=== PATIENT | female | born 1990 | race Caucasian/White ===

== ENCOUNTER → 2024-09-03 13:28 | Outpatient (CLI) | payer OTHER, SELFPAY ==
--- NOTE | 2024-09-03 13:31 | DI.US.S_ITS ---
PROCEDURE: US OB >= 14 WEEKS FETUS INDICATIONS: 20WK ANATOMY SCAN OUTSIDE/PRIOR DATING DATA: Last menstrual period (LMP): Unknown. LMP-based estimated date of delivery (GEMA): Unknown. First dating scan (date and location): 07/02/2024. Estimated date of delivery (GEMA) from first dating scan: 01/01/2025. The calculations are made using the GEMA of 01/01/2025. TECHNIQUE: Real-time scanning was performed of the fetus, with image documentation and biometric measurements. Endovaginal scanning: Not performed COMPARISON: None. FINDINGS: General: A single living intrauterine gestation is present. Presentation: Breech. Placenta: Placental position is posterior/fundal , without previa. Amniotic fluid index: 16.6 cm, normal range is 5-24 cm. Single deepest vertical pocket is 6.1 cm. heart rate: 158 beats per minute. Maternal cervical canal: 3.5 cm long. Normal lower limit is 2.5 cm. biometrics: Biparietal diameter: 5.6 cm, 23 weeks 1 day Head circumference: 20.8 cm, 23 weeks 0 days Abdominal circumference: 18.7 cm, 23 weeks 4 days Femur length: 3.7 cm, 21 weeks 6 days Clinically estimated gestational age: 22 weeks 6 days Composite gestational age from present scan: 22 weeks 6 days Estimated weight and percentile: 539 g, 42% Anatomic survey: Neuro: Ventricles are non-dilated at less than 10 mm. Cisterna magna is normal at 3-11 mm. Cerebellum is normal in size and morphology. Nuchal skin fold: Normal at less than 6 mm between 14-21 weeks gestational age. Face: Nose and lips, facial profile are normal. Spine: The sacrum is not well seen. Heart: 4-chambered heart is present. Left ventricular outflow tract appears normal. Right ventricular outflow tract is not well seen. Diaphragm: Diaphragm is intact. Stomach: Left-sided stomach is present. Kidneys: No hydronephrosis. Normal is less than 5 mm in 2nd trimester, less than 7 mm in 3rd trimester. Cord: 3-vessel cord has orthotopic insertion. Bladder: Normal in size. Extremities: All 4 extremities identified. IMPRESSION: 1. Single live intrauterine consistent with 22 weeks and 6 days. 2. The right ventricular outflow tract and sacrum are not well seen. Recommend short-term follow-up ultrasound. 3. anatomic survey is otherwise within normal limits. We strive to produce accurate, complete, and clear reports of imaging services. To assist us in improving patient care, this report was composed using standard report templates and voice recognition software. Therefore, it may contain abnormal punctuation, insertions and/or omissions. Occasional wrong-word or sound-alike substitutions may occur. Though we review the report and make efforts to correct it, we do recommend that the report be read carefully in proper context to recognize any text inaccuracies. Dictated by: Nathanael Madrigal M.D. on 09/03/2024 at 16:24 Approved by: Nathanael Madrigal M.D. on 09/03/2024 at 16:26
== END ==
PROVIDERS: Referring Provider Advanced Practice Midwife; Visit Provider Advanced Practice Midwife
DX: Z34.92 Encounter for supervision of normal pregnancy, unspecified, second trimester (principal); Z3A.22 22 weeks gestation of pregnancy
CPT/HCPCS: 76811

== ENCOUNTER 2024-12-07 21:17 | Outpatient (CLI) | payer OTHER, SELFPAY ==
[2024-12-07 22:13] LABS: Add Manual Diff / Slide Review NO; Basophils Absolute Auto 0 /uL (0-100); Basophils Percent Auto 0.4 % (0-2); Eosinophils Absolute Auto 100 /uL (0-450); Eosinophils Percent Auto 0.8 % (2-4); Hemoglobin 12.4 g/dL (12.0-16.0); Lymphocytes Absolute Auto 1700 /uL (1100-4500); Lymphocytes Percent Auto 18.5 % (25-40); Mean Corpuscular HGB Conc 35.5 % (30-36); Mean Corpuscular Volume 87.3 fL (80-100); Monocytes Absolute Auto 600 /uL (0-900); Monocytes Percent Auto 6.1 % (3-14); Neutrophils Absolute Auto 6800 /uL (1500-7000); Neutrophils Percent Auto 74.2 % (50-75); Platelet Count 243 X10^3/uL (150-400); Red Blood Cell Count 4.01 X10^6/uL (4.0-5.2); White Blood Cell Count 9.1 X10^3/uL (4.5-11.0)
--- NOTE | 2024-12-07 22:25 | PM.OBTRLD ---
Visit Information Visit Information Date of evaluation: 12/07/24 Primary OB Provider: Génesis Mcfadden On-call OB Provider: Génesis Mcfadden Reason for Evaluation: Yes non-stress test and Yes other Comments/Additional reasons for admission: 34YO @ 36wks 3 day by 13wks US here for evaluation of elevated home BP (130's/90's). +FM and mild cramping. No vaginal bleeding, LOF, headache, vision changes, RUQ pain or increased edema. Uncomplicated care with CNMs, though her social situation has been stressful with FOB infidelity and lack of involvement, work and of her daughter's father. Vital Signs Vital Signs: Serial BPs: 154/85, 138/89, 131/81, 141/82 HR 105, T 37.0F Temporal PFSH Social History (Updated 12/08/24 @ 02:22 by Génesis Mcfadden CNM) marital status: unmarried,single number of children: 1 household members: children lives independently: Yes caregiver/support person: No housing: house pets and animals: Yes Smokeless tobacco user: other quit status: has quit before alcohol intake: former substance use type: does not use Review of Systems Review of Systems ROS: Yes All systems reviewed with the patient and are negative except as otherwise documented Exam Vital Signs (past 8 hours): see above Presentation: vertex Neuro DTR's: Rt Patellar: 1+ and Lt Patellar: 1+ Extrem Right lower extremity: edema Details: non-pitting and 1+ Left lower extremity: edema Details: non-pitting and 1+ Psych Mood: congruent mood Affect: normal affect Attitude: cooperative Objective Labs 12/07/24 21:55 12/07/24 21:55 Labs: Laboratory Results - last 24 hr 12/07/24 21:55 WBC 9.1 RBC 4.01 Hgb 12.4 Hct 35.0 L MCV 87.3 MCH 31.0 MCHC 35.5 RDW 14.0 Plt Count 243 Neut % (Auto) 74.2 Lymph % (Auto) 18.5 L [place] % (Auto) 6.1 Eos % (Auto) 0.8 L Baso % (Auto) 0.4 Neut # (Auto) 6800 Lymph # (Auto) 1700 [place] # (Auto) 600 Eos # (Auto) 100 Baso # (Auto) 0 Pr:Cr-0.13 Evaluation Evaluation Baseline heart rate: 150 Variability: Moderate (11-25) monitor accelerations: Present Monitor Decelerations: Absent Contraction Frequency (minutes): 2 Uterine Contraction Intensity: Mild Category of Tracing: Reactive Diagnosis, Plan/Disposition Final Diagnosis (1) Preeclampsia: Status: Acute Problem details: elevated BP with elevated LFTs Plan/Disposition Plan: Rx nifedipine XR 30mg PO daily started with first dose given prior to discharge. Counseled on preeclampsia diagnosis with recommendation for IOL @ 37wks and Myranda is in agreement. IOL scheduled for 0700 on 12/11/2024. Continue home BPs. Reviewed warning sx and when to call. OB Disposition: home
[2024-12-07 22:28] LABS: Alanine Aminotransferase 107 IU/L (<35); Albumin 3.4 g/dL (3.5-5.0); Albumin Globulin Ratio 1.1 (1.0-2.8); Alkaline Phosphatase 104 U/L (38-126); Aspartate Aminotransferase 58 IU/L (14-36); Bilirubin Total 0.3 mg/dL (0.2-1.3); Blood Urea Nitrogen 11 mg/dL (7-17); Calcium 8.9 mg/dL (8.4-10.2); Carbon Dioxide 20 mmol/L (22-32); Chloride 103 mmol/L (98-107); Estimated Glomerular Filt Rate > 60 mL/min (>60); Glucose 101 mg/dL (70-99); HEMOLYSIS < 15 (0-50); Potassium 3.8 mmol/L (3.4-5.1); Sodium 130 mmol/L (137-145); Total Protein 6.4 g/dL (6.3-8.2); Uric Acid 4.6 mg/dL (2.5-6.2)
[2024-12-07 22:39] LABS: Creatinine Urine Random 67.48 mg/dL; Protein (Total) Urine Random 9 mg/dL (0-12); Protein Creatinine Ratio Urine 0.13 GRAM/24H
[2024-12-07] MEDS: NIFEdipine 30 MG TAB ER PO (22:57)
== END 2024-12-07 23:00 | disposition home or self-care (01) ==
LOC: LABOR 21:31 → OB 12-11 14:40
PROVIDERS: Referring Provider Nurse Practitioner Obstetrics & Gynecology; Visit Provider Nurse Practitioner Obstetrics & Gynecology
DX: O14.93 Unspecified pre-eclampsia, third trimester (principal); Z3A.37 37 weeks gestation of pregnancy
CPT/HCPCS: 36415; 59025; 80053; 84550; 85025; 86900; 86901; G0378; G0379

== ENCOUNTER 2024-12-11 07:14 | Inpatient (IN) | payer OTHER, SELFPAY ==
--- NOTE | 2024-12-11 07:25 | PM.OBHP.1 ---
OB HPI Date/Time Date of admission: 12/11/24 Date Patient Seen: 12/11/24 Time Patient Seen: 07:26 History of Present Condition Chief complaint: INDUCTION : 5 Para: 1 Estimated Date of Delivery: 01/01/25 Estimated Gestational Age (weeks): 37.0 Narrative: Darlene Thomas is a 34 year old female at 37wks 0days her for induction of labor for preeclampsia. Elevated BP with elevated ALT @ 51mjt12 days met criteria for preeclampsia and nifedipine was initiated. +FM. No cramping, VB or LOF. No headache, vision changes, RUQ pain or increased edema. Otherwise uncomplicated care with CNMs. Planning unmedicated . Accompanied by her mother and daughter. Indications Indication for induction OB: gestational HTN/pre-eclampsia History of Present care: good care, initiated at week # (13), number of visits (6) and pounds weight gain (40) Dating criteria: LMP confirmed by 1st trimester US Ultrasounds: normal mid trimester US Obstetrical complications: preeclampsia Medical complications: none Preadmission Labs Blood type: O (+) positive -: Antibody screen: negative, Cystic fibrosis screen: negative, GBS status: negative, HBsAG: negative, HIV: negative and RPR/VDLR: negative -: Chlamydia screen: not detected and Gonorrhea screen: not detected -: Rubella: immune and Varicella: immune HCT: 35 HCAB: reactive Cell-free DNA: Negative x3 1 hr GTT: 120 Prior (ies) History: 01/23/2011: NSVB @ 40wks, 10hr labor, epidural, 1st degree perineal laceration, female, 8lbs 6oz Hx # Term Pregnancies: 1 Hx # Pregnancies: 0 Number of Living Children: 1 Multiple births: 0 Spontaneous abortions: 0 Ectopic pregnancies: 0 Elective abortions: 3 Evaluation Evaluation Baseline heart rate: 150 Variability: Moderate (11-25) monitor accelerations: Present Monitor Decelerations: Absent Contraction Frequency (minutes): 2 Uterine Contraction Intensity: Mild Status: Category l Dilation (cm): 1.5 Effacement (%): 30 Dilation: 1-2 cm Effacement: 0-30% station: -3 Position of cervix: posterior Consistency: soft Duffy score: 3 PFS Social History (Updated 12/08/24 @ 02:22 by JUANJO Munoz marital status: unmarried,single number of children: 1 household members: children lives independently: Yes caregiver/support person: No housing: house pets and animals: Yes Smokeless tobacco user: other quit status: has quit before alcohol intake: former substance use type: does not use Meds Home Medications and Allergies Home Medications Medication Instructions Recorded Confirmed Type nifedipine 30 mg tablet,extended 30 mg PO DAILY 12/11/24 12/11/24 History release Allergies Allergy/AdvReac Type Severity Reaction Status Date / Time No Known Drug Allergies Allergy Verified 12/07/24 22:45 Review of Systems Review of Systems ROS: Yes All systems reviewed with the patient and are negative except as otherwise documented OB Exam Vital signs Blood Pressure: 141/82 Pulse Rate: 94 Temperature: 97.9 F Resp Effort & Inspection: normal respiratory effort and able to speak in complete sentences Auscultation: clear to auscultation bilaterally Cardio Rate: regular rate Rhythm: regular rhythm Heart Sounds: S1 normal and S2 normal Presentation: vertex Objective Labs 12/11/24 07:40 12/11/24 07:40 Labs: AST 34, ALT 71 Assessment and Plan Assessment and Plan Assessment and Plan narrative: A: Early term primipara IOL for preeclampsia Cervix not favorable No indication for antibiotics Tobacco user Cat I FHR P: Admit, routine labor orders with continued nifedipine XR 30mg. Recommend nicotine patch and Myranda declined this, stating she will request it if she thinks she needs it. Preeclampsia labs repeated and stable. Recommend cervical ripening with a ferris balloon and misoprostol which Myranda agreed to. Ferris balloon was placed, but then spontaneous ruptured immediately after placement. Myranda was surprise, but denied discomfort and agreed to repeat placement which was performed without difficulty. Reviewed patient and plan of care with [facility]/ who agreed with plan of care. Plan to start pitocin once favorable. Reassess after balloon comes out. Time-Based Coding :: [TOTAL MINUTES] spent with patient and on the chart (including review of chart, obtaining history, exam, reviewing outside data, placing orders, documenting exam and treatment plan, and counseling patient) on [DATE].
[2024-12-11 07:59] LABS: Add Manual Diff / Slide Review NO; Basophils Absolute Auto 100 /uL (0-100); Basophils Percent Auto 1.1 % (0-2); Eosinophils Absolute Auto 100 /uL (0-450); Eosinophils Percent Auto 1.3 % (2-4); Hematocrit 38.4 % (36-46); Hemoglobin 13.5 g/dL (12.0-16.0); Lymphocytes Absolute Auto 2000 /uL (1100-4500); Lymphocytes Percent Auto 24.2 % (25-40); Mean Corpuscular HGB Conc 35.1 % (30-36); Mean Corpuscular Hemoglobin 31.1 PG (26-34); Mean Corpuscular Volume 88.6 fL (80-100); Monocytes Absolute Auto 400 /uL (0-900); Monocytes Percent Auto 5.2 % (3-14); Neutrophils Absolute Auto 5700 /uL (1500-7000); Neutrophils Percent Auto 68.2 % (50-75); Platelet Count 233 X10^3/uL (150-400); Red Blood Cell Count 4.34 X10^6/uL (4.0-5.2); Red Cell Distribution Width 13.8 % (11.6-14.8); White Blood Cell Count 8.4 X10^3/uL (4.5-11.0)
[2024-12-11 08:10] LABS: Alanine Aminotransferase 71 IU/L (<35); Albumin 3.8 g/dL (3.5-5.0); Albumin Globulin Ratio 1.2 (1.0-2.8); Alkaline Phosphatase 115 U/L (38-126); Aspartate Aminotransferase 34 IU/L (14-36); BUN Creatinine Ratio 15.9 (6-22); Bilirubin Total 0.3 mg/dL (0.2-1.3); Blood Urea Nitrogen 7 mg/dL (7-17); Calcium 9.2 mg/dL (8.4-10.2); Carbon Dioxide 23 mmol/L (22-32); Chloride 104 mmol/L (98-107); Estimated Glomerular Filt Rate > 60 mL/min (>60); Globulin 3.1 g/dL (1.7-4.1); Glucose 85 mg/dL (70-99); HEMOLYSIS < 15 (0-50); Potassium 4.2 mmol/L (3.4-5.1); Sodium 133 mmol/L (137-145); Total Protein 6.9 g/dL (6.3-8.2)
[2024-12-11] MEDS: miSOPROStoL 25 MCG TABLET 50 MCG PO (08:31)
[2024-12-11 08:52] VITALS: BP 141/82; PULSE 94; TEMP 36.6
[2024-12-11] MEDS: NIFEdipine 30 MG TAB ER PO (09:03)
[2024-12-11 09:23] VITALS: BP 142/76
[2024-12-11 09:44] LABS: Protein (Total) Urine Random 8 mg/dL (0-12); Protein Creatinine Ratio Urine 0.13 GRAM/24H
[2024-12-11] MEDS: LACTATED RINGERS 1,000 ML 100 ML IV (12:23)
[2024-12-11] MEDS: OXYTOCIN PREMIX 30 UNIT/500 ML PLAST..BAG IV (12:28)
--- NOTE | 2024-12-11 13:47 | PM.OBPNLAB ---
Date/Time Date Patient Seen: 12/11/24 Time Patient Seen: 13:00 Pain Control Pain control: tolerating well Comments: Myranda is resting comfortably in bed, eager for labor or any intervention that can help move things along. No vaginal bleeding or leaking of fluid. Adhikari balloon out at 1011 and contractions persisted. Pitocin was initiate at 1230 (4 hours after single dose of misoprostol was given). Currently feeling regular contractions, not yet as strong as before the Adhikari balloon came out. Pelvic Exam Effacement (%): 30 station: -3 Comments: CE deferred, presumed to be 4-5cm. Contractions Monitor mode: External Pitocin rate (mU/min): 4 Contraction frequency (min): 2 Contraction duration (min): 1 (45 seconds) Contraction pattern: Regular Contraction intensity: Mild Status status: Category l Heart Rate Baseline: 145 Monitor Accelerations: Present Monitor Decelerations: Absent Monitor Variability: Moderate Assessment and Plan Assessment: induction ongoing Plan: continuous present management Comments: Continue pitocin titration, per protocol. Repeat CE after 2 hours of strong, regular contractions. Reassess in 4 hours or sooner, PRN.
--- NOTE | 2024-12-11 15:42 | PM.OBPNLAB ---
Date/Time Date Patient Seen: 12/11/24 Time Patient Seen: 15:30 Pain Control Pain control: tolerating well Comments: Has been alternating walking, ball and resting in bed. Feeling contraction of equal intensity to before the Adhikari balloon came out, but frustrated things aren't progressing faster. Agreeable to AROM at this time. VS: BP137/76, HR 113, T 36.2C Temporal Pelvic Exam Dilation (cm): 6 Effacement (%): 70 station: -3 Amniotic membrane status: Ruptured (AROM, clear) Contractions Monitor mode: External Pitocin rate (mU/min): 12 Contraction frequency (min): 2 Contraction duration (min): 1 Contraction pattern: Regular Contraction intensity: Moderate Status status: Category l Heart Rate Baseline: 150 Monitor Accelerations: Present Monitor Decelerations: Absent Monitor Variability: Moderate Assessment and Plan Assessment: induction ongoing (BPs stable) Plan: continuous present management Comments: AROM performed after discussion of R/B/A. Continue pitocin titration (likely down now) to adequate pattern. Labor support, PRN. Reassess in 4 hours or sooner, PRN.
[2024-12-11] MEDS: CALCIUM CARBONATE 500 MG TAB 1000 MG PO ×2 (17:37→20:47)
--- NOTE | 2024-12-11 19:50 | PM.OBPNLAB ---
Date/Time Date Patient Seen: 12/11/24 Time Patient Seen: 19:50 Pain Control Pain control: other (NO2) Comments: Feeling strong, regular contractions. Using NO2 with moderate relief. Well supported by her mother and daughter. VS: BP 149/78, HR 114, T 98.8F Temporal Pelvic Exam Dilation (cm): 7 Effacement (%): 80 station: -3 Amniotic membrane status: Leaking (clear) Contractions Monitor mode: External Pitocin rate (mU/min): 2 Contraction frequency (min): 2 Contraction duration (min): 1 Contraction pattern: Regular Contraction intensity: Moderate Status status: Category ll Heart Rate Baseline: 145 Monitor Accelerations: Present Monitor Decelerations: Variable Monitor Variability: Moderate Assessment and Plan Assessment: active labor and induction ongoing Plan: continuous present management Comments: Reassess in 4 hours or sooner, PRN.
[2024-12-11] MEDS: ONDANSETRON 4 MG/2 ML INJ IV (20:48)
[2024-12-11] MEDS: FAMOTIDINE 20 MG/2 ML VIAL IV (21:06)
[2024-12-12] MEDS: OXYTOCIN PREMIX 30 UNIT/500 ML PLAST..BAG 200 UNIT IV (00:05)
--- NOTE | 2024-12-12 00:28 | PM.OBPRVD ---
Events: Pre-Eclampsia Labor & Delivery Delivery date: 12/11/24 Delivery Time: 23:59 Intrapartal Events: None Cervical ripening method: per Adhikari bulb protocol (w/ misoprostol) Induction method: per pitocin protocol Delivery augmentation: rupture of membranes Delivery monitor: external FHT and external uterine Route of delivery: Episiotomy description: None L&D Laceration Description: None Quantitative Blood Loss: 250 Anesthesia Type: Epidural Narrative: IOL for preeclampsia: Adhikari balloon, misoprostol x1 dose, pitocin (max dose 12mu/min) and AROM. Preeclampsia remained mild throughout labor. Myranda labored well with hydrotherapy and NO2 for analgesia. She pushed well with coaching and encouragement. NSVB of a vigorous baby boy in THEO position over an intact perineum. There was a single loose nuchal cord and the shoulders delivered easily. [place] was placed on maternal abdomen for drying and skin to skin. 30 units of pitocin in 500mL LR was started at 333mL/hr for AMTSL. After cessation of pulsation, the cord was double clamped by CNM and cut by Myranda's mother. Cord blood was collected and sent to lab for routine screening. Gentle cord traction and a single maternal push led to spontaneous, Schultze delivery of an apparently intact placenta, membranes and 3VC. Fundus immediately firm and bleeding scant. QBL 250mL. Both mother and baby stable and skin to skin as I left the room. [place] Baby 1: Infant gender: Male Presentation: vertex Position: Right Occiput Anterior Placenta delivery description: Spontaneous and Normal Configuration Cord Vessel Description: 3 Vessels, Nuchal Cord (x1) and Loose score (1 min): 9 score (5 min): 9 Plan for aftercare: Routine care
[2024-12-12] MEDS: KETOROLAC 30 MG/ML VIAL IV (01:24)
[2024-12-12] MEDS: ACETAMINOPHEN 325 MG TABLET 650 MG PO ×4 (03:34→23:01)
[2024-12-12] MEDS: IBUPROFEN 600 MG TABLET PO ×3 (07:41→21:04)
[2024-12-13] MEDS: IBUPROFEN 600 MG TABLET PO (05:04)
[2024-12-13] MEDS: ACETAMINOPHEN 325 MG TABLET 650 MG PO (05:04)
[2024-12-13 10:01] LABS: Add Manual Diff / Slide Review NO; Basophils Absolute Auto 100 /uL (0-100); Basophils Percent Auto 0.7 % (0-2); Eosinophils Absolute Auto 100 /uL (0-450); Eosinophils Percent Auto 1.6 % (2-4); Hematocrit 31.5 % (36-46); Hemoglobin 11.5 g/dL (12.0-16.0); Lymphocytes Absolute Auto 2100 /uL (1100-4500); Lymphocytes Percent Auto 23.2 % (25-40); Mean Corpuscular HGB Conc 36.4 % (30-36); Mean Corpuscular Hemoglobin 32.4 PG (26-34); Monocytes Absolute Auto 500 /uL (0-900); Monocytes Percent Auto 5.9 % (3-14); Neutrophils Absolute Auto 6100 /uL (1500-7000); Neutrophils Percent Auto 68.6 % (50-75); Platelet Count 223 X10^3/uL (150-400); Red Blood Cell Count 3.54 X10^6/uL (4.0-5.2); Red Cell Distribution Width 13.6 % (11.6-14.8); White Blood Cell Count 8.9 X10^3/uL (4.5-11.0)
[2024-12-13 10:23] LABS: Alanine Aminotransferase 67 IU/L (<35); Albumin 3.1 g/dL (3.5-5.0); Albumin Globulin Ratio 1.1 (1.0-2.8); Alkaline Phosphatase 88 U/L (38-126); Aspartate Aminotransferase 45 IU/L (14-36); BUN Creatinine Ratio 27.8 (6-22); Bilirubin Total 0.2 mg/dL (0.2-1.3); Blood Urea Nitrogen 15 mg/dL (7-17); Calcium 8.3 mg/dL (8.4-10.2); Carbon Dioxide 20 mmol/L (22-32); Chloride 105 mmol/L (98-107); Estimated Glomerular Filt Rate > 60 mL/min (>60); Globulin 2.8 g/dL (1.7-4.1); Glucose 95 mg/dL (70-99); HEMOLYSIS < 15 (0-50); Potassium 3.8 mmol/L (3.4-5.1); Sodium 135 mmol/L (137-145); Total Protein 5.9 g/dL (6.3-8.2)
[2024-12-13 12:05] VITALS: BP 131/77; PULSE 103; RESP 16; TEMP 36.7
--- NOTE | 2024-12-13 14:12 | P.DS_ITS ---
Discharge Providers Provider Date of admission: 12/11/24 07:14 Discharge Date: 12/13/24 Consults: 12/13/24 00:48 Consult to Traffic Control Officer Routine Comment: Discharge provider: Purvi Daugherty CNM, ARNP Summary Hospital Course Date Patient Seen: 12/13/24 Time Patient Seen: 14:17 Diagnoses: O80 Hospital Course: Admitted for induction of labor r/to pre-eclampsia. Adhikari, misoprostol, pitocin, NSVB. Intact perineum, normal course, . Nifidipine not given in hospital despite order; plan to continue on meds at home and follow up with CNM in 3, 7 and 14 days or more PRN. Peripartum Data Delivery Method: Natural Vaginal [place] 1: Gender: Male Discharge Diagnosis (1) Supervision of high-risk : Status: Acute (2) Lactating mother: Status: Acute Status at Discharge Cognitive/behavioral status at discharge: oriented and calm Functional status at discharge: independent ambulation Overall status at discharge: patient is progressing back to baseline Time Spent with Patient Time attestation: Total time spent providing and/or coordinating discharge services: Time spent: Less than 30 minutes Specific discharge activities: discharge teaching Objective Labs 12/13/24 09:00 12/13/24 09:00 Labs: Laboratory Results - last 24 hr 12/13/24 09:00 WBC 8.9 RBC 3.54 L Hgb 11.5 L Hct 31.5 L MCV 89.0 MCH 32.4 MCHC 36.4 H RDW 13.6 Plt Count 223 Neut % (Auto) 68.6 Lymph % (Auto) 23.2 L [place] % (Auto) 5.9 Eos % (Auto) 1.6 L Baso % (Auto) 0.7 Neut # (Auto) 6100 Lymph # (Auto) 2100 [place] # (Auto) 500 Eos # (Auto) 100 Baso # (Auto) 100 Sodium 135 L Potassium 3.8 Chloride 105 Carbon Dioxide 20 L BUN 15 Creatinine 0.54 Estimated GFR > 60 BUN/Creatinine Ratio 27.8 H Glucose 95 Uric Acid 5.0 Calcium 8.3 L Total Bilirubin 0.2 AST 45 H ALT 67 H Alkaline Phosphatase 88 Total Protein 5.9 L Albumin 3.1 L Globulin 2.8 Albumin/Globulin Ratio 1.1 Exam Vital Signs (past 8 hours): - 12/13/24 12:05 Temperature 98.1 F Pulse Rate 103 H Respiratory Rate 16 Blood Pressure 131/77 Other: Fundus firm at U-1, midline. Lochia minimal Perineum intact with minimal edema Discharge Plan Discharge Plan Patient Disposition: Home Discharge orders & Medications Prescriptions: Continued nifedipine 30 mg tablet extended release 30 mg PO DAILY Follow up/Referrals: Purvi Daugherty, ROGER, ZEE [[facility] Building Carpenter] - 1 Week Diet/Activity/Treatments Diet: Diet as Tolerated and Regular Diet comment: increase fiber and fluid Activity: low piper x 2 weeks Cold/Heat Therapy: as needed Skin/Wound/Dressing Care Skin care: usual care Report to your healthcare provider any signs of infection, such as:: chills, fever, unusual drainage and unusual redness Visit Report/Discharge Packet Stand Alone Forms: Patient Portal/API, Stroke Signs & Symptoms
[2024-12-13] MEDS: NIFEdipine 30 MG TAB ER PO (14:39)
== END 2024-12-13 14:45 | disposition home or self-care (01) | DRG 560 ==
PROVIDERS: Admitting Provider Nurse Practitioner Obstetrics & Gynecology; Referring Provider Nurse Practitioner Obstetrics & Gynecology; Visit Provider Nurse Practitioner Obstetrics & Gynecology
DX: O14.94 Unspecified pre-eclampsia, complicating childbirth (principal); Z3A.37 37 weeks gestation of pregnancy; Z37.0 Single live birth; O99.334 Smoking (tobacco) complicating childbirth; O76 Abnormality in fetal heart rate and rhythm complicating labor and delivery
CPT/HCPCS: 36415; 59050; 59200; 80053; 82570; 84156; 84550; 85025; 86850; 86900; 86901; G0379; J1885; J2405; J2590